=== PATIENT | female | born 1975 | race Caucasian/White ===

== ENCOUNTER → 2017-07-12 | Outpatient (CLI) | payer BC ==
--- NOTE | 2017-07-12 15:38 | XR ---
Right knee HISTORY: Trauma and pain 3 views of the right knee Bone mineralization, joint spaces and alignment are maintained. Suspect soft tissue swelling. There m ay be a joint effusion. IMPRESSION: No fracture or dislocation.
--- NOTE | 2017-07-12 15:39 | XR ---
Right hip HISTORY: Trauma and pain 2 views of the right hip Correlation to previous exam 12/10/2010 There is no interval change. Bone mineralization, joint spaces and alignment are maintained IMPRESSION: No fracture or dislocation.
== END | disposition home or self-care (01) ==
LOC: RADXRMAIN 15:04
PROVIDERS: ATTEND Family Medicine
DX: T79.9XXA Unspecified early complication of trauma, initial encounter (principal)
CPT/HCPCS: 73502

== ENCOUNTER 2018-03-10 14:52 | Emergency (ER) | payer BC ==
[2018-03-10] MEDS ORDERED: SODIUM CHLORIDE 0.9% 1,000 ML IV STA (16:32)
[2018-03-10 16:56] LABS: Basophils % (A) 0 %; Eosinophils # (A) 0.1 k/uL (0-0.7); Eosinophils % (A) 1 %; HCT 41.2 % (34.0-46.0); HGB 14.7 gm/dL (11.4-16.0); Lymphocytes # (A) 1.1 k/uL (1.0-4.8); Lymphocytes % (A) 12 %; MCH 30.6 pg (25.0-35.0); MCHC 35.6 g/dL (31.0-37.0); MCV 86.1 fL (80.0-100.0); Mean Platelet Volume 7.9; Monocytes # (A) 0.1 k/uL (0-1.0); Monocytes % (A) 1 %; Neutrophils # (A) 7.4 k/uL (1.3-7.7); Neutrophils % (A) 84 %; Platelet Count 251 k/uL (150-450); RBC 4.79 m/uL (3.80-5.40); RDW 12.2 % (11.5-15.5); WBC 8.8 k/uL (3.8-10.6)
[2018-03-10 17:00] LABS: Appearance,Urine Cloudy (Clear); Bacteria,Urine Many /hpf; Bilirubin,Urine Negative (Negative); Blood,Urine Negative (Negative); Color,Urine Light Yellow; Glucose,Urine (UA) Negative (Negative); Ketones,Urine Negative (Negative); Leukocyte Esterase,Urine Negative (Negative); Mucus,Urine Rare /hpf; Nitrite,Urine Negative (Negative); PH, Urine 7.5 (5.0-8.0); Protein,Urine Negative (Negative); RBC,Urine 1 /hpf (0-5); Squamous Epithelial Cell,Urine 10 /hpf (0-4); Urobilinogen,Urine <2.0 mg/dL (<2.0); WBC,Urine 3 /hpf (0-5)
--- NOTE | 2018-03-10 17:01 | ED ---
General Adult HPI - General Chief complaint: Nausea/Vomiting/Diarrhea Stated complaint: Hypertensive Time Seen by Provider: 03/10/18 16:23 Source: patient, RN notes reviewed Mode of arrival: ambulatory Limitations: no limitations - History of Present Illness Initial comments: 42-year-old female presented to the emergency room today with a chief complaint of feeling nauseated and fatigued. Patient states that she began a new medication of Chlorthalidone 5 days ago. Patient states that she was not feeling good last night with this fatigue checked her blood pressure was 50s over 40. She states that she typically does run a little low. She states she talked to her family doctor. She states she was advised coming here to the emergency room today. She states her blood pressure was 140/90 this morning. Patient denies any other complaints or symptoms. Patient denies any recent fever , chills, shortness of breath, chest pain, back pain, abdominal pain, nausea or vomiting, numbness or tingling, dysuria or hematuria, constipation or diarrhea, headaches or visual changes, or any other complaints. - Related Data Home Medications Medication Instructions Recorded Confirmed Albuterol Nebulized [Ventolin 2.5 mg INHALATION RT-QID PRN 04/25/14 03/10/18 Nebulized] Albuterol Inhaler [Ventolin Hfa 1 - 2 puff INHALATION RT-Q6H PRN 03/10/18 Inhaler] Chlorthalidone 25 mg PO DAILY 03/10/18 03/10/18 Fluticasone/Salmeterol [Advair 1 puff INHALATION RT-BID 03/10/18 03/10/18 500-50 Diskus] oxyCODONE HCL/ACETAMINOPHEN 1 tab PO BID 03/10/18 03/10/18 [Percocet 10-325 mg] predniSONE 40 mg PO DAILY PRN 03/10/18 03/10/18 Allergies Allergy/AdvReac Type Severity Reaction Status Date / Time Sulfa (Sulfonamide Allergy Anaphylaxis Verified 03/10/18 17:25 Antibiotics) Review of Systems ROS Statement: Those systems with pertinent positive or pertinent negative responses have been documented in the HPI. ROS Other: All systems not noted in ROS Statement are negative. Past Medical History Past Medical History: Asthma Additional Past Medical History / Comment(s): MS History of Any Multi-Drug Resistant Organisms: None Reported Past Surgical History: Section, Cholecystectomy, Hysterectomy, Tubal Ligation Additional Past Surgical History / Comment(s): carpal tunnel Past Psychological History: No Psychological Hx Reported Smoking Status: Never smoker Past Alcohol Use History: Occasional Past Drug Use History: None Reported General Exam - General Exam Comments Initial Comments: General: The patient is awake and alert, in no distress, and does not appear acutely ill. Eye: Pupils are equal, round and reactive to light, extra-ocular movements are intact. No nystagmus. There is normal conjunctiva bilaterally. No signs of icterus. Ears, nose, mouth and throat: There are moist mucous membranes and no oral lesions. Neck: The neck is supple, there is no tenderness or JVD. Cardiovascular: There is a regular rate and rhythm. No murmur, rub or gallop is appreciated. Respiratory: Lungs are clear to auscultation, respirations are non-labored, breath sounds are equal. No wheezes, stridor, rales, or rhonchi. Gastrointestinal: Soft, non-distended, non-tender abdomen without masses or organomegaly noted. There is no rebound or guarding present. No CVA tenderness. Musculoskeletal: Normal ROM, no tenderness. Strength 5/5. Sensation intact. Pulses equal bilaterally 2+. Neurological: A&O x 3. CN II-XII intact, There are no obvious motor or sensory deficits. Coordination appears grossly intact. Speech is normal. Skin: Skin is warm and dry and no rashes or lesions are noted. Psychiatric: Cooperative, appropriate mood & affect, normal judgment. Limitations: no limitations Course Vital Signs 03/10/18 14:54 Temperature 98.9 F Pulse Rate 125 H Respiratory 18 Rate Blood Pressure 130/71 O2 Sat by Pulse 99 Oximetry Medical Decision Making - Medical Decision Making Patient reexamined at this time shows no signs of distress. Patient's chest x- rays negative. EKG shows normal sinus rhythm. Patient states that she just felt fatigued over the last few days. Does admit that her blood pressure was low yesterday. Patient advised to discontinue the medication and to follow-up the family doctor over the next 2 days. Advised return if any symptoms increase worsen or for any other concerns. She states understanding and is in agreement. - Lab Data Result diagrams: 03/10/18 16:45 03/10/18 16:45 Lab Results 05/02/2203/10/18 03/10/18 Range/Units 16:45 16:45 16:45 WBC 8.8 (3.8-10.6) k/uL RBC 4.79 (3.80-5.40) m/uL Hgb 14.7 (11.4-16.0) gm/dL Hct 41.2 (34.0-46.0) % MCV 86.1 (80.0-100.0) fL MCH 30.6 (25.0-35.0) pg MCHC 35.6 (31.0-37.0) g/dL RDW 12.2 (11.5-15.5) % Plt Count 251 (150-450) k/uL Neutrophils % 84 % Lymphocytes % 12 % Monocytes % 1 % Eosinophils % 1 % Basophils % 0 % Neutrophils # 7.4 (1.3-7.7) k/uL Lymphocytes # 1.1 (1.0-4.8) k/uL Monocytes # 0.1 (0-1.0) k/uL Eosinophils # 0.1 (0-0.7) k/uL Basophils # 0.0 (0-0.2) k/uL Sodium 140 (137-145) mmol/L Potassium 3.9 (3.5-5.1) mmol/L Chloride 104 (98-107) mmol/L Carbon Dioxide 21 L (22-30) mmol/L Anion Gap 15 mmol/L BUN 9 (7-17) mg/dL Creatinine 0.75 (0.52-1.04) mg/dL Est GFR (CKD-EPI)AfAm >90 (>60 ml/min/1.73 sqM) Est GFR (CKD-EPI)NonAf >90 (>60 ml/min/1.73 sqM) Glucose 118 H (74-99) mg/dL Calcium 9.7 (8.4-10.2) mg/dL Total Bilirubin 0.6 (0.2-1.3) mg/dL AST 27 (14-36) U/L ALT 24 (9-52) U/L Alkaline Phosphatase 86 (38-126) U/L Total Protein 7.7 (6.3-8.2) g/dL Albumin 4.6 (3.5-5.0) g/dL Urine Color Light Yellow Urine Appearance Cloudy H (Clear) Urine pH 7.5 (5.0-8.0) Ur Specific [place] 1.010 (1.001-1.035) Urine Protein Negative (Negative) Urine Glucose (UA) Negative (Negative) Urine Ketones Negative (Negative) Urine Blood Negative (Negative) Urine Nitrite Negative (Negative) Urine Bilirubin Negative (Negative) Urine Urobilinogen <2.0 (<2.0) mg/dL Ur Leukocyte Esterase Negative (Negative) Urine RBC 1 (0-5) /hpf Urine WBC 3 (0-5) /hpf Ur Squamous Epith Cells 10 H (0-4) /hpf Urine Bacteria Many H (None) /hpf Urine Mucus Rare H (None) /hpf Disposition Clinical Impression: Adverse drug reaction Disposition: HOME SELF-CARE Condition: Good Instructions: Dizziness (ED) Additional Instructions: Please discontinue prescription prescribed medication and follow-up the family doctor the next 2 days. Please return to the emergency room symptoms increase or worsen or for new concerns. Is patient prescribed a controlled substance at d/c from ED?: No Referrals: Pedro Olivia MD [Primary Care Provider] - 1-2 days Time of Disposition: 18:50
[2018-03-10 17:06] LABS: ALT 24 U/L (9-52); AST 27 U/L (14-36); Albumin 4.6 g/dL (3.5-5.0); Alkaline Phosphatase 86 U/L (38-126); Anion Gap 15 mmol/L; Blood Urea Nitrogen 9 mg/dL (7-17); Calcium 9.7 mg/dL (8.4-10.2); Carbon Dioxide 21 mmol/L (22-30); Chloride 104 mmol/L (98-107); Glucose 118 mg/dL (74-99); Potassium 3.9 mmol/L (3.5-5.1); Sodium 140 mmol/L (137-145); Total Bilirubin 0.6 mg/dL (0.2-1.3); Total Protein 7.7 g/dL (6.3-8.2)
--- NOTE | 2018-03-10 18:45 | XR ---
EXAMINATION: XR chest 2V DATE AND TIME: 03/10/2018 5:32 PM ORDERING PROVIDER: Rohan Peterson CLINICAL INDICATION: Fatigue TECHNIQUE: PA and lateral COMPARISON: 10/31/2013 DESCRIPTION: The lungs are clear. The pleural spaces are negative. The cardiac silhouette is not enlarged. The mediastinal and pleural silhouettes are unremarkable. The skeletal structures are intact without focal findings. The soft tissues are unremarkable. IMPRESSION: NO ACUTE PROCESS.
[2018-03-10 19:09] VITALS: BP 128/78; PULSE 99; RESP 20; TEMP 98
== END 2018-03-10 19:09 | disposition home or self-care (01) ==
LOC: EC 14:52
DX: R11.0 Nausea (principal); R53.83 Other fatigue; T50.2X5A Adverse effect of carbonic-anhydrase inhibitors, benzothiadiazides and other diuretics, initial encounter; J45.909 Unspecified asthma, uncomplicated; Z79.51 Long term (current) use of inhaled steroids; Z79.899 Other long term (current) drug therapy; Z88.2 Allergy status to sulfonamides
CPT/HCPCS: 36415; 71046; 80053; 81001; 85025; 87086; 93005; 96360; 99284

== ENCOUNTER 2018-04-25 08:56 | Emergency (ER) | payer BC ==
[2018-04-25 09:08] VITALS: BP 107/75; PULSE 89; RESP 16; TEMP 98.2
--- NOTE | 2018-04-25 09:24 | ED ---
Lower Extremity Injury HPI - General Chief Complaint: Extremity Injury, Lower Stated Complaint: Right Foot Injury Time Seen by Provider: 04/25/18 09:13 Source: patient, RN notes reviewed, old records reviewed Mode of arrival: ambulatory Limitations: no limitations - History of Present Illness Initial Comments: 42-year-old female process emergency department she bled of right foot pain. Patient reports that she was playing baseball on evening and she took a line drive to stop a ball with her right foot. She reports pain and bruising over the medial aspect of her foot. She states she's been able to bear weight on it but throughout the day the foot starts to swell during the evening. She states that it was increasingly painful yesterday evening. She does report bruising around the medial aspect of the foot. MD Complaint: foot injury - Related Data Home Medications Medication Instructions Recorded Confirmed Albuterol Nebulized [Ventolin 2.5 mg INHALATION RT-QID PRN 04/25/14 04/25/18 Nebulized] Albuterol Inhaler [Ventolin Hfa 1 - 2 puff INHALATION RT-Q6H PRN 03/10/18 Inhaler] Fluticasone/Salmeterol [Advair 1 puff INHALATION RT-BID 03/10/18 04/25/18 500-50 Diskus] oxyCODONE HCL/ACETAMINOPHEN 1 tab PO BID 03/10/18 04/25/18 [Percocet 10-325 mg] predniSONE 10 mg PO DAILY PRN 03/10/18 04/25/18 Hydrochlorothiazide [Hydrodiuril] 25 mg PO DAILY 04/25/18 04/25/18 Allergies Allergy/AdvReac Type Severity Reaction Status Date / Time Sulfa (Sulfonamide Allergy Anaphylaxis Verified 04/25/18 09:30 Antibiotics) Review of Systems ROS Statement: Those systems with pertinent positive or pertinent negative responses have been documented in the HPI. ROS Other: All systems not noted in ROS Statement are negative. Past Medical History Past Medical History: Asthma Additional Past Medical History / Comment(s): MS History of Any Multi-Drug Resistant Organisms: None Reported Past Surgical History: Section, Cholecystectomy, Hysterectomy, Tubal Ligation Additional Past Surgical History / Comment(s): carpal tunnel Past Psychological History: No Psychological Hx Reported Smoking Status: Never smoker Past Alcohol Use History: Occasional Past Drug Use History: None Reported General Exam - General Exam Comments Initial Comments: This patient's a 42-year-old female. Alert and oriented. No significant distress. Limitations: no limitations General appearance: alert, in no apparent distress Head exam: Present: atraumatic, normocephalic, normal inspection Eye exam: Present: normal appearance, PERRL, EOMI. Absent: scleral icterus, conjunctival injection, periorbital swelling ENT exam: Present: normal exam, mucous membranes moist Neck exam: Present: normal inspection Respiratory exam: Present: normal lung sounds bilaterally. Absent: respiratory distress, wheezes, rales, rhonchi, stridor Cardiovascular Exam: Present: regular rate, normal rhythm, normal heart sounds. Absent: systolic murmur, diastolic murmur, rubs, gallop, clicks GI/Abdominal exam: Present: soft, normal bowel sounds. Absent: distended, tenderness, guarding, rebound, rigid Extremities exam: Present: normal inspection, full ROM, normal capillary refill. Absent: tenderness, pedal edema, joint swelling, calf tenderness Right Lower Leg exam: Present: normal inspection, full ROM Ankle exam: Present: normal inspection, full ROM Foot/Toe exam: Present: tenderness, ecchymosis (Patient has a contusion and ecchymosis over the medial aspect of the foot.). Absent: normal inspection, full ROM Neurovascular tendon exam: Present: no vascular compromise Gait: observed and normal Back exam: Present: normal inspection Neurological exam: Present: alert, oriented X3, CN II-XII intact Psychiatric exam: Present: normal affect, normal mood Course Vital Signs 04/25/18 09:05 Temperature 98.2 F Pulse Rate 89 Respiratory 16 Rate Blood Pressure 107/75 O2 Sat by Pulse 96 Oximetry Medical Decision Making - Medical Decision Making Patient's a 42-year-old female presents emergency Department with right foot pain after she was hit with a softball in the medial aspect of the foot 4 days ago. Has bruising and increased swelling when walking for long periods time. X -ray obtained. She is neurovascularly intact. X-rays negative for any acute process. Patient informed him just likely a significant contusion. Patient was given an Tenzin wrap and advised to keep the foot up and elevated. Discussed she can follow-up with orthosis symptoms continue to persist. All questions answered return parameters were discussed. - Radiology Data Radiology results: report reviewed No Acute fracture-dislocation of the right foot. 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 Keep the foot up and elevated. Motrin Tylenol for pain and ice the area. Return to the emergency department if any alarming signs or symptoms occur. Is patient prescribed a controlled substance at d/c from ED?: No When asked, does pt state using other controlled substances?: No If prescribed controlled substance>3 days was MAPS reviewed?: No If opioid is for acute pain is fill amount 7 days or less?: No If Rx opioid, was Start Talking consent form obtained?: No Referrals: Pedro Olivia MD [Primary Care Provider] - 1-2 days Law Barragan DO [Doctor of Osteopathic Medicine] - 1-2 days Time of Disposition: 09:43
--- NOTE | 2018-04-25 09:39 | XR ---
EXAMINATION TYPE: XR foot complete RT DATE OF EXAM: 04/25/2018 CLINICAL HISTORY: Right foot pain after softball injury. TECHNIQUE: Frontal, lateral, and oblique images of the right foot are obtained. COMPARISON: Right foot x-ray April 25, 2014 FINDINGS: There is no acute fracture/dislocation evident in the right foot. Varus positioning dista l fifth toe is again seen. The joint spaces in the right foot appear within normal limits. Small inf erior calcaneal spur is redemonstrated. The overlying soft tissue appears unremarkable. IMPRESSION: There is no acute fracture or dislocation in the right foot.
== END 2018-04-25 09:53 | disposition home or self-care (01) ==
LOC: EC 08:56
DX: S90.31XA Contusion of right foot, initial encounter (principal); J45.909 Unspecified asthma, uncomplicated; Z79.51 Long term (current) use of inhaled steroids; Z79.891 Long term (current) use of opiate analgesic; Z79.899 Other long term (current) drug therapy; Z88.2 Allergy status to sulfonamides; W21.03XA Struck by baseball, initial encounter; Y93.64 Activity, baseball
CPT/HCPCS: 99284

== ENCOUNTER 2018-05-02 21:54 | Emergency (ER) | payer BC ==
[2018-05-02 22:02] VITALS: BP 140/70; PULSE 102; RESP 16; TEMP 98.5
--- NOTE | 2018-05-02 22:12 | ED ---
Lower Extremity Injury HPI - General Chief Complaint: Extremity Injury, Lower Stated Complaint: knee swelling/softball Time Seen by Provider: 05/02/18 22:05 Source: patient Mode of arrival: ambulatory Limitations: no limitations - History of Present Illness Initial Comments: 42-year-old female patient presents to the emergency department today for evaluation of left knee pain and swelling. Patient states that 2 weeks ago she was playing softball, slid into second base, and someone fell on top of her landing on the knee. Patient states that she has had pain and swelling since then. Patient states that whenever she walks she feels like her knee wants to go one way and her thigh wants to go the other way. She states that she played softball again tonight and had increased pain and swelling after the game. She denies any new numbness or tingling to the left lower leg. Denies any other injuries. Denies any fever, chills, or redness to the joint. Patient denies any headache, neck pain, back pain, chest pain, shortness of breath, dizziness, weakness, abdominal pain, nausea, vomiting, or difficulties with bowel movements or urination. - Related Data Home Medications Medication Instructions Recorded Confirmed Albuterol Nebulized [Ventolin 2.5 mg INHALATION RT-QID PRN 04/25/14 05/02/18 Nebulized] Albuterol Inhaler [Ventolin Hfa 1 - 2 puff INHALATION RT-Q6H PRN 03/10/18 Inhaler] Fluticasone/Salmeterol [Advair 1 puff INHALATION RT-BID 03/10/18 05/02/18 500-50 Diskus] oxyCODONE HCL/ACETAMINOPHEN 1 tab PO BID 03/10/18 05/02/18 [Percocet 10-325 mg] predniSONE 10 mg PO DAILY PRN 03/10/18 05/02/18 Hydrochlorothiazide [Hydrodiuril] 25 mg PO DAILY 04/25/18 05/02/18 Allergies Allergy/AdvReac Type Severity Reaction Status Date / Time egg Allergy Unknown Verified 05/02/18 22:12 Sulfa (Sulfonamide Allergy Anaphylaxis Verified 05/02/18 22:12 Antibiotics) Review of Systems ROS Statement: Those systems with pertinent positive or pertinent negative responses have been documented in the HPI. ROS Other: All systems not noted in ROS Statement are negative. Past Medical History Past Medical History: Asthma Additional Past Medical History / Comment(s): MS History of Any Multi-Drug Resistant Organisms: None Reported Past Surgical History: Section, Cholecystectomy, Hysterectomy, Tubal Ligation Additional Past Surgical History / Comment(s): carpal tunnel Past Psychological History: No Psychological Hx Reported Smoking Status: Never smoker Past Alcohol Use History: Occasional Past Drug Use History: None Reported General Exam Limitations: no limitations General appearance: alert, in no apparent distress, other (This is a well- developed, well-nourished adult female patient in no acute distress. Vital signs upon presentation are temperature 98.5F, pulse 102, respirations 16, blood pressure 140/70, pulse ox 98% on room air.) Eye exam: Present: normal appearance, PERRL, EOMI. Absent: scleral icterus, conjunctival injection, periorbital swelling ENT exam: Present: normal exam, normal oropharynx, mucous membranes moist Respiratory exam: Present: normal lung sounds bilaterally. Absent: respiratory distress, wheezes, rales, rhonchi, stridor Cardiovascular Exam: Present: regular rate, normal rhythm, normal heart sounds. Absent: systolic murmur, diastolic murmur, rubs, gallop, clicks Extremities exam: Present: full ROM (Patient does exhibit full range of motion of the knee, has full extension without difficulty, full flexion is present however she has increased pain with this.), tenderness (Tenderness to the medial lateral aspects of the left knee.), normal capillary refill, other (Left knee joint is swollen. There is brownish area of ecchymosis to the medial aspect of the left knee. Skin to the left leg is pink, warm, and dry. Cap refills less than 3 seconds. Post tibial pulses are 2+ and equal bilaterally.) . Absent: normal inspection, pedal edema, joint swelling, calf tenderness Neurological exam: Present: alert, oriented X3, CN II-XII intact Psychiatric exam: Present: normal affect, normal mood Skin exam: Present: warm, dry, intact, normal color. Absent: rash Course Vital Signs 05/02/18 21:59 Temperature 98.5 F Pulse Rate 102 H Respiratory 16 Rate Blood Pressure 140/70 O2 Sat by Pulse 98 Oximetry Medical Decision Making - Medical Decision Making 42-year-old female patient presented to the emergency department today for evaluation of left knee pain and swelling 2 weeks. Pain and swelling increased with playing softball. Physical examination did reveal tenderness to the medial and lateral aspects of the knee. There is no laxity or pain with valgus and varus maneuvers. Patient states that the knee does feel unstable with walking. X-ray was obtained shows no acute abnormalities. Patient was placed in the immobilizer instructed to follow-up with orthopedics for further evaluation. Return parameters discussed in detail. She verbalizes understanding and agrees with this plan. - Radiology Data Radiology results: report reviewed, image reviewed 3 views of the left knee are obtained. There is no fracture or dislocation noted. Joint spaces are normal. There is no sign of a joint effusion. Impression by Dr. Weiss shows negative left knee exam. Disposition Clinical Impression: Strain of left knee Disposition: HOME SELF-CARE Condition: Good Instructions: Knee Sprain (ED) Additional Instructions: Use knee immobilizer for comfort and support. Apply ice to the knee 20 minutes at a time at least 4 times daily. Continue taking home pain medication as needed. Rest knee. Follow-up with orthopedics for further evaluation. Follow- up through primary care physician for recheck in 1-2 days. Return here immediately for any new, worsening, or concerning symptoms. Is patient prescribed a controlled substance at d/c from ED?: No Referrals: Pedro Olivia MD [Primary Care Provider] - 1-2 days Yariel Barragan DO [Doctor of Osteopathic Medicine] - 1-2 days Time of Disposition: 22:54
--- NOTE | 2018-05-02 22:50 | XR ---
EXAMINATION TYPE: XR knee complete LT DATE OF EXAM: 05/02/2018 COMPARISON: NONE HISTORY: Softball injury. Pain and swelling TECHNIQUE: 3 views FINDINGS: I see no fracture nor dislocation. Joint spaces are normal. There is no sign of joint effus ion. IMPRESSION: Negative left knee exam.
== END 2018-05-02 23:11 | disposition home or self-care (01) ==
LOC: EC 21:54
DX: S86.812A Strain of other muscle(s) and tendon(s) at lower leg level, left leg, initial encounter (principal); J45.909 Unspecified asthma, uncomplicated; Z79.891 Long term (current) use of opiate analgesic; Z79.899 Other long term (current) drug therapy; Z88.2 Allergy status to sulfonamides; Z91.012 Allergy to eggs; W50.0XXA Accidental hit or strike by another person, initial encounter; Y93.64 Activity, baseball; Y92.89 Other specified places as the place of occurrence of the external cause
CPT/HCPCS: 73562; 99283; L1830

== ENCOUNTER 2018-08-30 08:16 | Emergency (ER) | payer BC ==
[2018-08-30 08:20] VITALS: RESP 18
[2018-08-30] MEDS ORDERED: METOCLOPRAMIDE 5 MG/ML 2 ML VIAL IVP STA (08:43)
[2018-08-30] MEDS ORDERED: DEXAMETHASONE SOD PHOSPHATE 10 MG/ML 1 ML VIAL IV STA (08:43)
[2018-08-30] MEDS ORDERED: ORPHENADRINE 30 MG/ML 2 ML VIAL IVP STA (08:43)
[2018-08-30] MEDS ORDERED: SODIUM CHLORIDE 0.9% 1,000 ML IV ONE (08:44)
[2018-08-30] MEDS ORDERED: diphenhydrAMINE 50 MG/ML 1 ML VIAL IVP STA (08:44)
--- NOTE | 2018-08-30 08:47 | ED ---
Headache HPI - General Chief Complaint: Headache Stated Complaint: headache x 2 days, vomiting, head injury Time Seen by Provider: 08/30/18 08:21 Source: patient, RN notes reviewed Mode of arrival: ambulatory Limitations: no limitations - History of Present Illness Initial Comments: 42-year-old female presents emergency Department chief complaint of headache. Patient states headache started yesterday and she's been vomiting throughout the night. Patient states her headache worsened when her went to pull the sheets to the bed and struck her in the back of her head. Patient states she did not lose conscious. Patient states she has chronic headaches from suspected MS. Patient states that she was given Valium to take for and states normally works was helping this time. She did try Excedrin. Denies any blurred vision, focal weakness, fever, chills, neck stiffness. Patient states that the headache is diffuse and occipital region. Patient does have some photo phobia. Patient denies chest pain, shortness breath. - Related Data Home Medications Medication Instructions Recorded Confirmed Albuterol Nebulized [Ventolin 2.5 mg INHALATION RT-QID PRN 04/25/14 08/30/18 Nebulized] Albuterol Inhaler [Ventolin Hfa 1 - 2 puff INHALATION RT-Q6H PRN 03/10/18 Inhaler] Fluticasone/Salmeterol [Advair 1 puff INHALATION RT-BID 03/10/18 08/30/18 500-50 Diskus] oxyCODONE HCL/ACETAMINOPHEN 1 tab PO BID 03/10/18 08/30/18 [Percocet 10-325 mg] predniSONE 10 mg PO DAILY PRN 03/10/18 08/30/18 Hydrochlorothiazide [Hydrodiuril] 25 mg PO DAILY 04/25/18 08/30/18 Allergies Allergy/AdvReac Type Severity Reaction Status Date / Time egg Allergy Unknown Verified 08/30/18 08:42 Sulfa (Sulfonamide Allergy Anaphylaxis Verified 08/30/18 08:42 Antibiotics) Review of Systems ROS Statement: Those systems with pertinent positive or pertinent negative responses have been documented in the HPI. ROS Other: All systems not noted in ROS Statement are negative. Past Medical History Past Medical History: Asthma Additional Past Medical History / Comment(s): hypotension, MS History of Any Multi-Drug Resistant Organisms: None Reported Past Surgical History: Section, Cholecystectomy, Hysterectomy, Tubal Ligation Additional Past Surgical History / Comment(s): carpal tunnel Past Psychological History: No Psychological Hx Reported Smoking Status: Never smoker Past Alcohol Use History: Occasional Past Drug Use History: None Reported General Exam Limitations: no limitations General appearance: alert, in no apparent distress Head exam: Present: atraumatic, normocephalic, normal inspection Eye exam: Present: normal appearance, PERRL, EOMI. Absent: scleral icterus, conjunctival injection, periorbital swelling ENT exam: Present: normal exam, normal oropharynx, mucous membranes moist, TM's normal bilaterally, normal external ear exam Neck exam: Present: normal inspection, full ROM. Absent: tenderness, meningismus, lymphadenopathy Respiratory exam: Present: normal lung sounds bilaterally. Absent: respiratory distress, wheezes, rales, rhonchi, stridor Cardiovascular Exam: Present: regular rate, normal rhythm, normal heart sounds. Absent: systolic murmur, diastolic murmur, rubs, gallop, clicks Neurological exam: Present: alert, oriented X3, CN II-XII intact, reflexes normal, other (Finger to nose intact bilaterally without over shooting GCS of 15 ). Absent: motor sensory deficit Skin exam: Present: warm, dry, intact, normal color. Absent: rash Course Vital Signs 08/30/18 08:17 Temperature 98.5 F Pulse Rate 110 H Respiratory 18 Rate Blood Pressure 133/65 O2 Sat by Pulse 97 Oximetry Medical Decision Making - Medical Decision Making 42-year-old female presents emergency Department for headache. Patient states is not typical headache CT was obtained which showed no acute abnormality. Patient feels improved after IV medications. Patient we discharged with close follow-up. Return parameters discussed Disposition Clinical Impression: Migraine Disposition: HOME SELF-CARE Condition: Stable Instructions: Acute Headache (ED) Additional Instructions: Please return to the Emergency Department if symptoms worsen or any other concerns. Is patient prescribed a controlled substance at d/c from ED?: No Referrals: Pedro Olivia MD [Primary Care Provider] - 1-2 days Time of Disposition: 10:34
--- NOTE | 2018-08-30 09:50 | CT ---
EXAMINATION TYPE: CT brain wo con DATE OF EXAM: 08/30/2018 COMPARISON: 12/10/2010 HISTORY: Headache 2-[address] DLP: 999 mGycm. Automated Exposure Control for Dose Reduction was Utilized. TECHNIQUE: CT scan of the head is performed without contrast. FINDINGS: There is no acute intracranial hemorrhage, mass effect, or midline shift identified. No s uspicious extra-axial fluid collection. The ventricles and sulci are within normal limits in size. M ild mucosal thickening is seen within the ethmoid sinuses. The globes are intact and the remaining vi sualized sinuses are clear. IMPRESSION: No acute intracranial hemorrhage, mass effect, or midline shift is seen.
[2018-08-30] MEDS ORDERED: KETOROLAC 30 MG/ML 1 ML VIAL IVP STA (10:33)
[2018-08-30 11:01] VITALS: BP 106/66; PULSE 92
[2018-08-30 11:08] VITALS: TEMP 97.8
== END 2018-08-30 11:08 | disposition home or self-care (01) ==
LOC: EC 08:16
DX: G43.909 Migraine, unspecified, not intractable, without status migrainosus (principal); J45.909 Unspecified asthma, uncomplicated; Z79.51 Long term (current) use of inhaled steroids; Z79.899 Other long term (current) drug therapy; Z88.2 Allergy status to sulfonamides; Z91.012 Allergy to eggs
CPT/HCPCS: 70450; 99284; 96374; 96375 ×4; 96361; J1200; J1100; J2360; J2765; J1885

== ENCOUNTER 2018-09-24 17:49 | Emergency (ER) | payer BC ==
[2018-09-24 17:53] VITALS: BP 112/74; PULSE 83; RESP 20; TEMP 98
[2018-09-24] MEDS ORDERED: PROPARACAINE 0.5% OPHTH DROPS 15 ML BTL BOTH EYES STA (18:39)
[2018-09-24] MEDS ORDERED: ERYTHROMYCIN 5 MG/GM OPHTH OINT 3.5 GM TUBE LEFT EYE STA (19:30)
--- NOTE | 2018-09-24 19:31 | ED ---
General Adult HPI - General Source: patient, RN notes reviewed Mode of arrival: ambulatory Limitations: no limitations <Alberto Bryan P - Last Filed: 09/24/18 19:43> <Uyen Richards P - Last Filed: 09/24/18 22:20> - General Chief complaint: Eye Problems Stated complaint: Left Eye Red - History of Present Illness Initial comments: 42-year-old female presents to the emergency department for a chief complaint of left eye irritation 2 days. Patient states this started yesterday. She states she has clear serous drainage from the left eye. She denies crusting or purulent drainage. She denies pain within the eye but states it is mildly irritated. She states she has mild pain superior to the left eye. She denies pain with movement of the left eye. She denies fevers or chills. She denies any injury to the left eye. She denies any foreign body sensation. She denies noting any swelling around the left eye. Patient denies visual changes from the left eye. Patient has no other complaints at this time including shortness of breath, chest pain, abdominal pain, nausea or vomiting, headache, or visual changes. (Alberto Bryan) - Related Data Home Medications Medication Instructions Recorded Confirmed Albuterol Nebulized [Ventolin 2.5 mg INHALATION RT-QID PRN 04/25/14 08/30/18 Nebulized] Albuterol Inhaler [Ventolin Hfa 1 - 2 puff INHALATION RT-Q6H PRN 03/10/18 Inhaler] Fluticasone/Salmeterol [Advair 1 puff INHALATION RT-BID 03/10/18 08/30/18 500-50 Diskus] oxyCODONE HCL/ACETAMINOPHEN 1 tab PO BID 03/10/18 08/30/18 [Percocet 10-325 mg] predniSONE 10 mg PO DAILY PRN 03/10/18 08/30/18 Hydrochlorothiazide [Hydrodiuril] 25 mg PO DAILY 04/25/18 08/30/18 Previous Rx's Medication Instructions Recorded Erythromycin Ophth Oint [Romycin 1 applic LEFT EYE QID 7 Days gm 09/24/18 Ophth Oint] Allergies Allergy/AdvReac Type Severity Reaction Status Date / Time egg Allergy Unknown Verified 09/24/18 17:53 Sulfa (Sulfonamide Allergy Anaphylaxis Verified 09/24/18 17:53 Antibiotics) Review of Systems ROS Other: All systems not noted in ROS Statement are negative. <Alberto Bryan P - Last Filed: 09/24/18 19:43> ROS Other: All systems not noted in ROS Statement are negative. <Uyen Richards P - Last Filed: 09/24/18 22:20> ROS Statement: Those systems with pertinent positive or pertinent negative responses have been documented in the HPI. Past Medical History Past Medical History: Asthma Additional Past Medical History / Comment(s): hypotension, MS History of Any Multi-Drug Resistant Organisms: None Reported Past Surgical History: Section, Cholecystectomy, Hysterectomy, Tubal Ligation Additional Past Surgical History / Comment(s): carpal tunnel Past Psychological History: No Psychological Hx Reported Smoking Status: Never smoker Past Alcohol Use History: Occasional Past Drug Use History: None Reported <Alberto Bryan P - Last Filed: 09/24/18 19:43> General Exam Limitations: no limitations General appearance: alert, in no apparent distress Head exam: Present: atraumatic, normocephalic, normal inspection Eye exam: Present: PERRL, EOMI (No pain with movement of the left eye), conjunctival injection (Mild conjunctival injection of the left eye with clear serous drainage), periorbital tenderness (Minimal superior periorbital tenderness without edema or erythema). Absent: scleral icterus, periorbital swelling Expanded Eyelids: Normal Inspection: Bilateral Pupils: Regular, Round: Bilateral Sclera/Conjunctival: Normal Inspection: Right, Injection: Left Anterior chamber: Normal Inspection: Bilateral Visual acuity (R) = 20/: 25 Visual acuity (L) = 20/: 40 IOP (R) in mmH IOP (L) in mmH IOP measured with: Tonopen ENT exam: Present: normal exam, normal oropharynx, mucous membranes moist, TM's normal bilaterally, normal external ear exam Neck exam: Present: normal inspection, full ROM. Absent: tenderness, meningismus, lymphadenopathy Respiratory exam: Present: normal lung sounds bilaterally. Absent: respiratory distress, wheezes, rales, rhonchi, stridor Cardiovascular Exam: Present: regular rate, normal rhythm, normal heart sounds. Absent: systolic murmur, diastolic murmur, rubs, gallop, clicks Neurological exam: Present: alert, oriented X3, CN II-XII intact Psychiatric exam: Present: normal affect, normal mood <Alberto Bryan - Last Filed: 09/24/18 19:43> Vital Signs 09/24/18 17:51 Temperature 98.0 F Pulse Rate 83 Respiratory 20 Rate Blood Pressure 112/74 O2 Sat by Pulse 99 Oximetry Medical Decision Making <Alberto Bryan - Last Filed: 09/24/18 19:43> <Uyen Richards - Last Filed: 09/24/18 22:20> - Medical Decision Making 42-year-old female with erythema of the left eye presents to the emergency department. Patient states this has been ongoing since yesterday. She denies pain within the eye or pain with movement of the eye but does state there is mild pain to the superior periorbital area. Denies any visual changes. Admits to mild serous drainage, denies purulent drainage. Denies injury or foreign body sensation. On exam patient does have mild conjunctival injection. No foreign body evident. The eye was numbed with proparacaine and stained with fluorescein stain. No evidence of corneal abrasion, negative Constanza sign. IOP is within normal limits. At this time patient will be treated with a erythromycin ointment for conjunctivitis. Discussed the patient to follow up with primary care or ophthalmology in one to 2 days. Discussed to return here if pain is worsening or she has any worsening symptoms. Discussed with Dr. Richards (Alberto Bryan) I was available for consultation in the emergency department. The history and physical exam were done by the midlevel provider. I was consulted for this patient's care. I reviewed the case with the midlevel provider and based on their presentation of the patient, I agree with the assessment, medical decision making and plan of care as documented. (Uyen Richards) Disposition Is patient prescribed a controlled substance at d/c from ED?: No Time of Disposition: 19:30 <Alberto Bryan P - Last Filed: 09/24/18 19:43> <Uyen Richards P - Last Filed: 09/24/18 22:20> Clinical Impression: Conjunctivitis Disposition: HOME SELF-CARE Condition: Good Instructions: Conjunctivitis (ED) Additional Instructions: Please use antibiotic ointment as directed. Please follow-up with primary care in 1-2 days. If symptoms do not resolve you may follow up with ophthalmology as well. Please return to the emergency department if you have any worsening symptoms. Prescriptions: Erythromycin Ophth Oint [Romycin Ophth Oint] 1 applic LEFT EYE QID 7 Days gm Referrals: Pedro Olivia MD [Primary Care Provider] - 1-2 days Chris Lepe MD [STAFF PHYSICIAN] - 1-2 days
== END 2018-09-24 19:48 | disposition home or self-care (01) ==
LOC: EC 17:49
DX: H10.9 Unspecified conjunctivitis (principal); J45.909 Unspecified asthma, uncomplicated; Z79.891 Long term (current) use of opiate analgesic; Z79.899 Other long term (current) drug therapy; Z79.51 Long term (current) use of inhaled steroids; Z88.2 Allergy status to sulfonamides; Z91.012 Allergy to eggs
CPT/HCPCS: 99283

== ENCOUNTER → 2018-10-03 | Outpatient (CLI) | payer BC ==
--- NOTE | 2018-10-03 16:30 | XR ---
EXAMINATION TYPE: XR chest 2V DATE OF EXAM: 10/03/2018 COMPARISON: 03/10/2018 HISTORY: Chest pain TECHNIQUE: Frontal and lateral views of the chest are obtained. FINDINGS: There is no focal air space opacity. No evidence for pneumothorax. No pleural effusion. The cardiac silhouette size is within normal limits. The osseous structures are grossly intact. IMPRESSION: 1. No acute cardiopulmonary process.
--- NOTE | 2018-10-03 16:33 | XR ---
EXAMINATION TYPE: XR sacroiliac joint comp BILAT DATE OF EXAM: 10/03/2018 COMPARISON: None HISTORY: Uveitis TECHNIQUE: Sacroiliac joints are evaluated in 3 projections. FINDINGS: Sacroiliac joints are patent. No effusion is evident. No acute fractures are evident. No si gnificant degenerative changes are evident. IMPRESSION: 1. No significant degenerative changes in the bilateral sacroiliac joints.
[2018-10-03 18:32] LABS: Albumin 4.3 g/dL (3.80-4.90); Anion Gap 5.1 mmol/L (4.00-12.00); Calcium 9.3 mg/dL (8.7-10.3); Carbon Dioxide 25.9 mmol/L (21.6-31.8); Potassium 4.5 mmol/L (3.5-5.5)
[2018-10-04 05:53] LABS: Angiotensin-1 Converting Enz. 26 U/L (8-52)
[2018-10-05 11:22] LABS: HLA B27 POSITIVE
== END | disposition home or self-care (01) ==
LOC: LABWHC1 09:55
PROVIDERS: ATTEND Ophthalmology
DX: M47.818 Spondylosis without myelopathy or radiculopathy, sacral and sacrococcygeal region (principal); H44.132 Sympathetic uveitis, left eye
CPT/HCPCS: 36415; 71046; 72202; 80069; 82164; 86038; 86431; 86618; 86780; 86812

== ENCOUNTER → 2019-05-24 | Outpatient (CLI) | payer BC ==
[2019-05-24 08:59] LABS: Basophils % (A) 0 %; Eosinophils # (A) 0.4 k/uL (0-0.7); Eosinophils % (A) 6 %; HCT 39.8 % (34.0-46.0); Lymphocytes % (A) 30 %; MCH 29.9 pg (25.0-35.0); MCHC 32.7 g/dL (31.0-37.0); MCV 91.3 fL (80.0-100.0); Mean Platelet Volume 7.6; Monocytes # (A) 0.3 k/uL (0-1.0); Monocytes % (A) 4 %; Neutrophils # (A) 3.9 k/uL (1.3-7.7); Neutrophils % (A) 58 %; Platelet Count 235 k/uL (150-450); RBC 4.36 m/uL (3.80-5.40); RDW 12.3 % (11.5-15.5); WBC 6.7 k/uL (3.8-10.6)
[2019-05-24 16:34] LABS: Vitamin D 25 Hydroxy 20.9 ng/mL (30.0-100.0)
[2019-05-24 16:38] LABS: African American GFR (CKD) 103.9 (60.0-200.0); Albumin 4.2 g/dL (3.80-4.90); Albumin/Globulin Ratio 2.21 (1.60-3.17); Anion Gap 5.7 mmol/L (4.00-12.00); BUN/Creat Ratio 11.25 Ratio (12.00-20.00); Calcium 8.9 mg/dL (8.7-10.3); Carbon Dioxide 25.3 mmol/L (21.6-31.8); Globulin 1.9 g/dL (1.6-3.3); LDL Cholesterol,Calculated 58.8 mg/dL (0.0-131.0); Potassium 4.2 mmol/L (3.5-5.5); Total Bilirubin 0.6 mg/dL (0.2-1.2); Total Protein 6.1 g/dL (6.2-8.2); VLDL Calculation 27.2 mg/dL (5.00-40.00)
[2019-05-24 16:55] LABS: Folate, Serum 23.9 ng/mL
[2019-05-24 18:06] LABS: EBV-EA (IgG) 0.2 AI; EBV-EBNA(IgG) >8.0 AI
[2019-05-25 12:39] LABS: APTT 41 Sec(s) (<43); Dilute Russell Viper Venom 36 Sec(s) (<44)
== END | disposition home or self-care (01) ==
LOC: LABWHC1 08:22
PROVIDERS: ATTEND Family Medicine
DX: I10 Essential (primary) hypertension (principal); G35 Multiple sclerosis; Z79.899 Other long term (current) drug therapy
CPT/HCPCS: 36415; 80053; 80061; 82306; 82607; 82746; 83036; 84443; 85025; 85613; 85730; 86038; 86617; 86663; 86664; 86665

== ENCOUNTER → 2019-07-16 | Outpatient (CLI) | payer BC ==
--- NOTE | 2019-07-16 19:21 | MR ---
EXAMINATION TYPE: MR thoracic spine wo/w con DATE OF EXAM: 07/16/2019 COMPARISON: NONE HISTORY: Multiple sclerosis, Rt leg numbness, Dizziness TECHNIQUE: Multiplanar, multisequence imaging of thoracic spine is performed without and with IV cont rast demyelinating disease protocol, patient injected with 7 cc of gadolinium contrast. FINDINGS: Spinal cord shows normal course, caliber, and signal as it courses the thoracic spine. Kelsey tebral body heights and alignment are satisfactory. Disc space heights are fairly well maintained pos terior disc herniation effaces anterior thecal sac T11-T12 level sagittal image 9. No significant spu rring is seen. Bone marrow signal intensity is preserved. No suspicious enhancement is noted. Review of the axial images shows no significant spinal canal stenosis or neural foraminal narrowing at any thoracic level. No significant additional disc herniation is present. Visualized thorax and up per abdomen show no incidental suspicious abnormality. IMPRESSION: No evidence of demyelinating disease involvement in the thoracic spinal cord. Small disc herniation T11-T12 level effaces the anterior thecal sac.
== END | disposition home or self-care (01) ==
LOC: RADMRIMAIN 17:10
PROVIDERS: ATTEND Psychiatry & Neurology Neurology
DX: M51.24 Other intervertebral disc displacement, thoracic region (principal); G35 Multiple sclerosis
CPT/HCPCS: 72157; A9585

== ENCOUNTER → 2019-08-08 | Outpatient (CLI) | payer BC ==
--- NOTE | 2019-08-20 16:58 | EEG ---
ELECTROENCEPHALOGRAM REPORT ELECTRONYSTAGMOGRAPHIC REPORT: AGE: 43 VNG INDICATIONS: Vertigo. VNG FINDINGS: SPONTANEOUS NYSTAGMUS: SACCADES: Saccades shows saccades to be borderline to mildly impaired. GAZE TEST: Gaze with fixation shows no nystagmus in any of the directions of gaze including centrally with vision denied. SINUSOIDAL TRACKING: OKN TEST: DAREN-HALLPIKE TEST: [place]-Hallpike maneuvers are not completed. POSITION TEST: Static position testing in 6 different positions shows no nystagmus with eyes open with vision denied. CALORIC TEST: The patient was having difficulty keeping the eyes open and she was instructed to take her medications and would finish the test tomorrow and patient did not show for the 2nd part of the testing. IMPRESSION: Limited VNG, however saccades and tracking were borderline. Uncertain whether this was do to excessive sleepiness during the test. The patient could not complete the 2nd part of the test and was rescheduled, but was a no-show. There may be a central nervous system component to the vertigo based on testing today, though would need to be confirmed by further testing. Clinical correlation necessary. MMODL / IJN: [id number] /
== END ==
LOC: NEUROMAIN 06:48
PROVIDERS: ATTEND Psychiatry & Neurology Neurology
DX: H81.4 Vertigo of central origin (principal)
CPT/HCPCS: 92540

== ENCOUNTER → 2019-08-13 | Outpatient (CLI) | payer BC ==
--- NOTE | 2019-08-13 21:52 | MR ---
EXAMINATION TYPE: MR brain/cspine wo/w DATE OF EXAM: 08/13/2019 COMPARISON: None HISTORY: Multiple sclerosis, Rt leg numbness, Dizziness TECHNIQUE: Multiplanar, multisequence images of the brain and brainstem is performed without and with IV contras t, utilizing 7 mL intravenous Gadavist . Multiplanar multiecho imaging of the cervical spine was perf ormed also without and with IV contrast. FINDINGS: Ventricles have normal size. There is no mass effect nor midline shift. There is no evidence of intra cranial hemorrhage. Diffusion images show no evidence of cerebral cortical infarct. On the FLAIR imag es there is a 4 mm focus of increased signal in the subcortical white matter right posterior frontal lobe at the internal capsule. There is a 4 mm focus of subtle increased signal in the sravan on the lef t side. There is no evidence of cerebral edema. There is minor mucosal thickening in the ethmoid air cells. There is no pathologic cerebral enhancement. There is normal contrast opacification of the venous sin uses. Cervical vertebra have normal alignment. There is small posterior disc bulging at C5-6 and C6-7. Ther e is no spinal stenosis. Cervical spinal cord has normal signal pattern. There is no edema. There is no cervical spine pathologic enhancement. Delayed images show no pathologic enhancement. IMPRESSION: Mild posterior disc herniation at C5-6 C6-7 without significant impingement on the spinal canal. Isolated small focus of increased signal in the white matter right posterior frontal lobe of uncertai n significance. Minimal signal change in the brainstem of doubtful significance as above. I do not se e convincing evidence of demyelinating disease.
== END | disposition home or self-care (01) ==
LOC: RADMRIMAIN 19:58
PROVIDERS: ATTEND Psychiatry & Neurology Neurology
DX: M50.222 Other cervical disc displacement at C5-C6 level (principal); R90.89 Other abnormal findings on diagnostic imaging of central nervous system
CPT/HCPCS: 70553; 72156; A9585

== ENCOUNTER → 2019-12-25 | Outpatient (CLI) | payer BC ==
--- NOTE | 2020-01-28 19:20 | EM ---
EVENT MONITOR 30-DAY EVENT MONITOR: INDICATION: Rule out cardiac arrhythmia. The patient was monitored for 30 days. The baseline rhythm appeared to be sinus mechanism. The patient did have multiple episodes of sinus tachycardia, and during these episodes she did have symptoms of dizziness and lightheadedness as well as shortness of breath. No evidence of any atrial fibrillation or atrial flutter seen. No evidence of any advanced AV block seen. No evidence of sinus pause or sinus arrest seen. CONCLUSION: 1. This is a 30-day event monitor. 2. Sinus rhythm as a baseline mechanism. 3. The patient did have multiple episodes of sinus tachycardia associated with symptoms of dizziness and lightheadedness and shortness of breath. 4. No evidence of any significant sinus bradycardia seen. 5. No evidence of any advanced AV block seen. 6. No evidence of any atrial fibrillation or atrial flutter. MMODL / IJN: [id number] /
== END | disposition home or self-care (01) ==
LOC: RADECHMAIN 11:42
PROVIDERS: ATTEND Psychiatry & Neurology Neurology
DX: R00.0 Tachycardia, unspecified (principal); R42 Dizziness and giddiness; R06.02 Shortness of breath
CPT/HCPCS: 93270

== ENCOUNTER 2020-06-26 09:50 | Day surgery (SDC) | payer BC ==
[2020-06-23 16:17] VITALS: BMI 30.2
[~2020-06-26 09:50] MED LIST: LACTATED RINGERS 1,000 ML IV SCH
[2020-06-26 10:16] VITALS: RESP 16; TEMP 97.6
[2020-06-26] MEDS ORDERED: LIDOCAINE 1% (10MG/ML) FOR IV START IV ONE (10:26)
[2020-06-26 10:39] LABS: Glucose,Whole Blood 87 mg/dL (75-99)
[2020-06-26] MEDS ORDERED: fentaNYL (PF) 50 MCG/ML 2 ML AMP ONE (10:39)
[2020-06-26] MEDS ORDERED: MIDAZOLAM 2 MG/2 ML VIAL ONE (10:39)
[2020-06-26] MEDS ORDERED: ETOMIDATE 2 MG/ML 10 ML VIAL ONE (10:39)
--- NOTE | 2020-06-26 10:41 | P.GSHP ---
History of Present Illness H&P Date: 06/26/20 Chief Complaint: GERD This a 44-year-old female presents today for EGD. She's had issues with GERD. Past Medical History Past Medical History: Asthma Additional Past Medical History / Comment(s): Hx Hypotension. MS. Current ?Ulcer. History of Any Multi-Drug Resistant Organisms: None Reported Past Surgical History: Section, Cholecystectomy, Hysterectomy, Orthopedic Surgery, Tubal Ligation Additional Past Surgical History / Comment(s): Carpal Tunnel Surgery. Past Anesthesia/Blood Transfusion Reactions: Previous Problems w/ Anesthesia, Postoperative Nausea & Vomiting (PONV) Additional Past Anesthesia/Blood Transfusion Reaction / Comment(s): "When I had my Hysterectomy they gave me an anesthetic with egg derivative in and I had to stay in hospital for 1 1/2 weeks, had severe nausea and vomiting." Slow to wake up. Past Psychological History: Anxiety Smoking Status: Never smoker Past Alcohol Use History: Occasional Past Drug Use History: None Reported - Past Family History Father Family Medical History: Cancer Additional Family Medical History / Comment(s): Lung Cancer. Medications and Allergies Home Medications Medication Instructions Recorded Confirmed Type Albuterol Nebulized [Ventolin 2.5 mg INHALATION RT-QID PRN 04/25/14 06/23/20 History Nebulized] Albuterol Inhaler (Mhu) [Ventolin 1 - 2 puff INHALATION RT-Q6H PRN 03/10/18 06/23/20 History Hfa Inhaler] Fluticasone/Salmeterol [Advair 1 puff INHALATION RT-BID 03/10/18 06/23/20 History 500-50 Diskus] oxyCODONE HCL/ACETAMINOPHEN 1 tab PO BID 03/10/18 06/23/20 History [Percocet 10-325 mg] predniSONE 10 mg PO DAILY PRN 03/10/18 06/23/20 History Ibuprofen [Motrin] 800 mg PO Q8H 06/23/20 06/23/20 History Omeprazole [PriLOSEC] 40 mg PO DAILY 06/23/20 06/23/20 History Allergies Allergy/AdvReac Type Severity Reaction Status Date / Time egg Allergy Unknown Verified 06/26/20 10:07 Sulfa (Sulfonamide Allergy Anaphylaxis Verified 06/26/20 10:07 Antibiotics) Surgical - Exam Vital Signs Temp Pulse Resp BP Pulse Ox 97.6 F 94 16 122/58 96 06/26/20 10:15 06/26/20 10:15 06/26/20 10:15 06/26/20 10:15 06/26/20 10:15 - General well developed, well nourished, no distress - Eyes PERRL - ENT normal pinna - Neck no masses - Respiratory normal expansion - Cardiovascular Rhythm: regular - Abdomen Abdomen: soft, non tender Assessment and Plan Assessment: GERD. We'll perform EGD.
--- NOTE | 2020-06-26 10:56 | P.OP ---
Date of Procedure: 06/26/20 Preoperative Diagnosis: Gastritis Postoperative Diagnosis: Antral ulcer Procedure(s) Performed: EGD Anesthesia: MAC Surgeon: Tommy Redmond Pathology: other (Antral ulcer) Condition: stable Disposition: PACU Description of Procedure: The patient's placed on the endoscopy table in the lateral position. She received IV sedation. The gastroscope placed oropharynx passed in the esophagus into the stomach. Scope was then placed through the pylorus. The first and second portion of the duodenum appeared normal. Scope was then brought back the antrum and there was a pyloric ulcer seen the patient was moving and it was difficult to perform a biopsies. A biopsy of the antrum was performed. The picture of the ulcer was performed. Scope was then withdrawn. There is no evidence of any upper GI bleed. The GE junction was at 40 cm the distal esophagus appeared normal. The proximal esophagus. Appeared normal
[2020-06-26 11:14] VITALS: BP 103/71; PULSE 75
== END 2020-06-26 11:35 | disposition home or self-care (01) ==
LOC: ORWHC2ENDO 09:50
PROVIDERS: ATTEND Surgery
DX: K29.50 Unspecified chronic gastritis without bleeding (principal); K25.9 Gastric ulcer, unspecified as acute or chronic, without hemorrhage or perforation; K21.9 Gastro-esophageal reflux disease without esophagitis; J45.909 Unspecified asthma, uncomplicated; F41.9 Anxiety disorder, unspecified; G35 Multiple sclerosis; F43.10 Post-traumatic stress disorder, unspecified; Z88.2 Allergy status to sulfonamides; Z91.012 Allergy to eggs; Z79.1 Long term (current) use of non-steroidal anti-inflammatories (NSAID); Z79.51 Long term (current) use of inhaled steroids; Z79.891 Long term (current) use of opiate analgesic; Z79.899 Other long term (current) drug therapy; Z90.710 Acquired absence of both cervix and uterus; Z90.49 Acquired absence of other specified parts of digestive tract; Z98.891 History of uterine scar from previous surgery; Z98.51 Tubal ligation status; Z98.890 Other specified postprocedural states; Z80.1 Family history of malignant neoplasm of trachea, bronchus and lung
CPT/HCPCS: 88305; 88342; 43239; J2250; J3010

== ENCOUNTER → 2020-07-30 | Outpatient (CLI) | payer BC ==
[2020-07-30 10:33] LABS: HCT 41.3 % (34.0-46.0); HGB 13.5 gm/dL (11.4-16.0); MCH 29.8 pg (25.0-35.0); MCHC 32.6 g/dL (31.0-37.0); MCV 91.3 fL (80.0-100.0); Mean Platelet Volume 7.9; Platelet Count 240 k/uL (150-450); RBC 4.52 m/uL (3.80-5.40); RDW 12.7 % (11.5-15.5); WBC 7.1 k/uL (3.8-10.6)
[2020-07-30 16:34] LABS: INR 0.94 (0.90-1.11); Prothrombin Time 10.1 sec (9.9-11.9)
[2020-07-30 18:17] LABS: African American GFR (CKD) 127.6 (60.0-200.0); Albumin 4.2 g/dL (3.80-4.90); Albumin/Globulin Ratio 1.83 (1.60-3.17); Anion Gap 6.5 mmol/L (4.00-12.00); Carbon Dioxide 24.5 mmol/L (21.6-31.8); Chol/HDL Ratio 3.54; Globulin 2.3 g/dL (1.6-3.3); LDL Cholesterol,Calculated 90.4 mg/dL (0.0-131.0); Non-African American GFR(CKD) 110.1 (60.0-200.0); Potassium 4.8 mmol/L (3.5-5.5); Total Bilirubin 0.3 mg/dL (0.3-1.2); Total Protein 6.5 g/dL (6.2-8.2); VLDL Calculation 31.6 mg/dL (5.00-40.00)
[2020-07-30 21:19] LABS: Hemoglobin A1C 4.9 % (4.0-6.0)
== END | disposition home or self-care (01) ==
LOC: LABWHC1 09:22
PROVIDERS: ATTEND Family Medicine
DX: R53.83 Other fatigue (principal)
CPT/HCPCS: 36415; 80053; 80061; 82306; 83036; 84443; 84681; 85027; 85610

== ENCOUNTER → 2023-01-31 | Outpatient (CLI) | payer OTHER ==
--- NOTE | 2023-01-31 22:15 | CT ---
EXAMINATION TYPE: CT lumbar spine wo con DATE OF EXAM: 01/31/2023 4:27 PM COMPARISON: None. HISTORY: lumbar neuritis CT DLP: 988.2 mGycm Automated exposure control for dose reduction was used. Unenhanced CT of the lumbar spine was performed. Bone and soft tissue window settings are submitted as well as coronal and sagittal reconstructions. There are 5 lumbar-type vertebra. Vertebral body heights and disc space heights are preserved. Alignm ent is satisfactory. Axial images at T12-L1 through the L2-L3 levels appear within normal limits. Axial images at the L3-L4 level show mild broad disc bulge and mild facet arthropathy and ligamentum hypertrophy. There is some effacement of the posterior lateral thecal sac and minimal effacement of a nterior thecal sac. Bilateral neural foramina are patent. Axial images at L4-L5 level show [id number] facet arthropathy and ligamentum flavum hypertrophy effacing posterolateral thecal sac. There is mild broad disc bulge minimally effaces the anterior th ecal sac. There is mild bilateral anterior inferior neural foraminal narrowing seen. Axial images at L5-S1 level show mild to moderate facet arthropathy bilaterally. Spinal canal is pres erved. Bilateral neural foramina are patent. Cholecystectomy clips are seen in the overlying soft tissue. IMPRESSION: Some mild to moderate multilevel degenerative change in the mid to lower lumbar spine as detailed above. No large eccentric disc herniation is present.
--- NOTE | 2023-01-31 22:18 | CT ---
EXAMINATION TYPE: CT hip LT wo con DATE OF EXAM: 01/31/2023 COMPARISON: None. HISTORY: bursitis. Left hip pain. CT DLP: 361.6 mGycm Automated exposure control for dose reduction was used. FINDINGS: Hip joint space is maintained. No significant acetabular spurring or subchondral cystic changes prese nt. No joint effusion is seen. No acute displaced fracture is present. Femoral head shape is maintain ed. No suspicious left groin hernia or adenopathy is seen. Muscle bulk in the left thigh is maintaine d. Few diverticula in the sigmoid colon are present. There is 2.3 cm rounded low dense lesion in the lef t pelvis or ovary consistent with simple small ovarian cyst or prominent follicle axial image 9. IMPRESSION: As above.
== END | disposition home or self-care (01) ==
LOC: RADCTMAIN 16:06
PROVIDERS: ATTEND Family Medicine
DX: M47.26 Other spondylosis with radiculopathy, lumbar region (principal); M48.061 Spinal stenosis, lumbar region without neurogenic claudication; M99.73 Connective tissue and disc stenosis of intervertebral foramina of lumbar region; M70.72 Other bursitis of hip, left hip
CPT/HCPCS: 72131

== ENCOUNTER → 2025-02-26 | Outpatient (CLI) | payer OTHER ==
--- NOTE | 2025-02-26 11:20 | CA ---
Transthoracic Echo Report Name: Marga Vickers Age: 49 Gender: F : 1975 Exam Date: 02/26/2025 08:50 Exam Location: [facility] Ht (in): 61 Wt (lb): 169 Ordering Physician: Pedro Olivia MD Attending/Referring Phys: Ballistics Expert Forensic Polly Fenton RDCS Procedure CPT: Indications: I47.2 TACHYCARDIA Cardiac Hx: Technical Quality: Fair Contrast 1: Total Dose (mL): Contrast 2: Total Dose (mL): MEASUREMENTS (Male / Female) Normal Values 2D ECHO LV Diastolic Diameter PLAX 3.7 cm 4.2 - 5.9 / 3.9 - 5.3 cm LV Systolic Diameter PLAX 2.5 cm IVS Diastolic Thickness 1.1 cm 0.6 - 1.0 / 0.6 - 0.9 cm LVPW Diastolic Thickness 1.2 cm 0.6 - 1.0 / 0.6 - 0.9 cm LV Relative Wall Thickness 0.6 RV Internal Dim ED PLAX 3.0 cm LA Systolic Diameter LX 3.1 cm 3.0 - 4.0 / 2.7 - 3.8 cm LV Diastolic Volume MOD 4C 85.4 cm??? LV Systolic Volume MOD 4C 31.6 cm??? LV Ejection Fraction MOD 4C 63.0 % LV Cardiac Index MOD 4C 2736.1 cm???/min???m??? LV Diastolic Length 4C 9.3 cm LV Systolic Length 4C 7.2 cm LV Diastolic Volume MOD 2C 90.4 cm??? LV Systolic Volume MOD 2C 32.5 cm??? LV Ejection Fraction MOD 2C 64.1 % LV Cardiac Index MOD 2C 2948.8 cm???/min???m??? LV Diastolic Length 2C 8.9 cm LV Systolic Length 2C 7.3 cm LA Volume 37.0 cm??? 18 - 58 / 22 - 52 cm??? LA Volume Index 20.0 cm???/m??? 16 - 28 cm???/m??? M-MODE Aortic Root Diameter MM 3.3 cm AV Cusp Separation MM 2.2 cm DOPPLER AV Peak Velocity 139.6 cm/s AV Peak Gradient 7.8 mmHg MV Area PHT 4.4 cm??? Mitral E Point Velocity 70.0 cm/s Mitral A Point Velocity 107.1 cm/s Mitral E to A Ratio 0.7 MV Deceleration Time 173.6 ms FINDINGS Left Ventricle Left ventricular ejection fraction is estimated at 55-60 %. Normal left ventricular systolic function with no obvious regional wall motion abnormalities. Mildly increased left ventricular wall thickness. Right Ventricle Normal right ventricular size. Unable to estimate the right ventricular systolic pressure. Right Atrium Normal right atrial size. No right atrial thrombus or mass seen. Left Atrium Normal left atrial size. No left atrial thrombus or mass present. Mitral Valve Structurally normal mitral valve. No mitral stenosis, or prolapse. Trace mitral regurgitation. Aortic Valve Trileaflet aortic valve. No aortic valve stenosis or regurgitation. Tricuspid Valve Structurally normal tricuspid valve. No tricuspid stenosis,trace tricuspid regurgitation. Pulmonic Valve Pulmonic valve not well visualized. Pericardium No pericardial effusion. Aorta Normal size aortic root and proximal ascending aorta. CONCLUSIONS Technically difficult study. Normal left ventricular size and systolic function Trace mitral and tricuspid regurgitation Previewed by: Dr. Madan Rojas MD (Electronically Signed) Final Date: 26 February 2025 11:19
--- NOTE | 2025-02-26 12:12 | CA ---
Exercise Stress Test Report Name: Marga Vickers Exam Date: 02/26/2025 10:42 Exam Location: [facility] Ht (in): 61 Wt (lb): 169 BSA: 1.76 Ordering Phys: Pedro Olivia MD Referring Phys: ASHVIN Technologist: Dm Fletcher Age: 49 Gender: F : 1975 Procedure CPT: Indications: I47.20 VENTRICULAR TACHYCARDIA, UNSPECIFIED ICD-10 Codes: Patient History: Medications: SEE LIST Meds past 24 hrs: Pretest Chest Pain: STRESS TEST Johnnie Protocol Exercise Duration (min:sec): 06:[address] Depressions (mm): 0 Angina Score: 0 Frey Score: 6.75 Resting HR (bpm): Peak HR (bpm): 155 Resting BP (mmHg): 117 / 90 Peak BP (mmHg): 147 / 72 MPHR: 170 Target HR: 145 % MPHR: 91 METS: 10.0 Total Dose: Peak Dose: Atropine: Double Product: 95551 BP Response: Stress Termination: TARGET HR REACHED/MAX EXERTION Stress Symptoms: NO SYMPTOMS Stress Summary: The patient's target heart rate was achieved, The hemodynamic response to exercise was normal ECG ANALYSIS Resting ECG: Sinus rhythm. Normal conduction. No arrhythmias. Normal repolarization. Stress ECG: No ECG evidence of ischemia with exercise. CONCLUSIONS Patient falls into low-risk group (DTS >= +5). This associates the patient with an annual CV mortality <= 0.5%. Decreased exercise tolerance with normal electrocardiographic response to exercise Nuclear images will be reported separately Dr. Madan Rojas MD (Electronically Signed) Final Date: 26 February 2025 12:11
--- NOTE | 2025-02-26 12:13 | NM ---
EXAMINATION TYPE: NM stress cardiolite complete DATE OF EXAM: 02/26/2025 COMPARISON: NONE CLINICAL INDICATION: Female, 49 years old with history of I47.20 VENTRICULAR TACHYCARDIA, UNSPECIFIED ; TECHNIQUE: After the intravenous administration of 9.59 mCi Tc 99m Sestamibi - Rest images obtained 45 minutes post injection. The patient exercised using a SUGEY protocol and 1 minute prior to peak exercise was injected with 25.2 mCi Tc 99m Sestamibi - Stress images obtained 25 minutes post injecti on. FINDINGS: Targeted heart rate (145 bpm) was achieved during performance of the study (155 bpm achieved). Total exercise time 6 minutes 45 seconds. Review of stress and rest SPECT images demonstrates no distinct perfusion abnormality. Gated analysis shows normal wall motion with an estimated left ventricular ej ection fraction of 66 %. TID is calculated at 0.83, within normal limits. IMPRESSION: No scintigraphic evidence for reversible ischemia [facility], , 02/26/2025 12:11 PM
== END | disposition home or self-care (01) ==
LOC: RADECHMAIN 08:34
PROVIDERS: ATTEND Family Medicine
DX: I08.1 Rheumatic disorders of both mitral and tricuspid valves (principal); I47.20 Ventricular tachycardia, unspecified
CPT/HCPCS: 93017; 93306; 78452; A9500

== ENCOUNTER → 2025-02-26 | Outpatient (CLI) | payer OTHER | END | disposition home or self-care (01) | LOC: RADNMMAIN 08:33 | PROVIDERS: ATTEND Family Medicine | DX: Z53.9 Procedure and treatment not carried out, unspecified reason (principal) ==